=== PATIENT | female | born 1985 | race Caucasian/White ===

== ENCOUNTER 2016-09-14 10:07 | Emergency (ER) | payer MEDICAID, OTHER ==
[2016-09-14 10:26] VITALS: BMI 29.3
[2016-09-14 13:13] LABS: AUTOMATED BASOPHIL 0.3 % (0-2); AUTOMATED EOSINOPHIL 0.5 % (0-5); AUTOMATED LYMPH 32.5 % (17-44); AUTOMATED MONOCYTE 8.1 % (3-10); AUTOMATED NEUTROPHIL 58.6 % (45-76)
[2016-09-14 13:25] LABS: BLOOD UREA NITROGEN 11 MG/DL (7-17); CALCIUM 9.9 MG/DL (8.4-10.2); CALCULATED OSMOLALITY 267 MOs/Kg (270-290); CHLORIDE 103 mEq/L (98-107); GLUCOSE 90 MG/DL (70-99); SODIUM LEVEL 139 mEq/L (137-146); TOTAL PROTEIN 7.4 G/DL (6.3-8.2)
--- NOTE | 2016-09-14 13:53 | EDPRACDOC ---
- General Information Information Source: Patient - History of Present Illness Onset: THIS AM Description: Reports: Spontaneous Control Method: Reports: None Pain Severity: Mild Vaginal Bleeding Description: Reports: Clotted Associated Signs & Symptoms: Reports: None <Keaton Carrillo - Last Filed: 09/14/16 14:01> - History of Present Illness Location: Reports: External Vagina Relevant History: Reports: Currently <Viktor Loving - Last Filed: 09/14/16 16:04> - General Information Chief Complaint: Vaginal Bleeding Stated Complaint: VAGINAL BLEEDING () Time Seen by Provider: 09/14/16 12:26 Home Medications: Home Medications Vits W-Ca,Fe,FA(<1Mg) [] 1 tab PO DAILY 08/25/15 Allergies/Adverse Reactions: Allergies Allergy/AdvReac Type Severity Reaction Status Date / Time No Known Allergies Allergy Verified 09/18/15 23:59 ED Past Medical History - History Reviewed Yes Nurses notes reviewed and agree except as marked - Patient Medical History Neurological History: Denies: Cerebrovascular Accident, Seizures, Multiple Sclerosis Cardiac History: Denies: Syncope Psychological History: Denies: Depression, Anxiety, Bipolar Disorder, Substance Use Disorder Systemic History: Denies: Cancer, Anemia, Hyperthyroidism, Hypothyroidism, Lupus Surgical History: Denies: Tonsillectomy/Adnoidectomy - Family Medical History Denies: Hypertension, Diabetes, Cancer, Stroke, Cardiac Disorders - Social Medical History Smoking Status: Never smoker Social History: Denies: Amphetamine Use, Barbiturate Use, Benzodiazipine Use, Cocaine Use, Heroin Use, Marijuana Use, Methadone Use, MDMA (Ecstasy) Use, Substance Use Disorder <Keaton Carrillo - Last Filed: 09/14/16 14:01> EDM Review of Systems - Review of Systems ROS Negative Except as Marked: Yes All systems reviewed and were negative except as marked <Keaton Carrillo - Last Filed: 09/14/16 14:01> - Physical Exam Constitutional: Alert (Awake), No apparent distress Oriented to: Time, Person, Place Last recorded Vital Signs: Last Vital Signs Temp 98.5 F 09/14/16 10:24 Pulse 89 09/14/16 10:26 Resp 16 09/14/16 10:26 BP 126/76 09/14/16 10:26 Pulse Ox 97 09/14/16 10:26 Oxygen Pulse Oxygen Saturation 97 O2 Device Room Air Oxygen Flow Rate Fraction of Inspired Oxygen ( FIO2) - HEENT Head: Normal ( normocephalic) Eye Exam: Normal (PERRL, EOMI, Sclera white) Oropharynx: Normal (Pharynx:Moist without exudate,Gums-no swelling) Tympanic Membrane: Normal ENT EAC: Normal TMJ: Normal Nose: No Symptoms Reported (septum midline) Neck: Normal (FROM, trachea at midline) - Respiratory/Cardiovascular Respiratory: Normal - CTA (BBS clear to auscultation without adventitious sounds ) Cardiovascular: Normal (RRR without murmur, gallop or rub) - GI Auscultation: Normal (NABS) Palpation: Normal (Soft,No rebound or guarding, non distended) Tenderness: Non tender Domínguez's Sign: Negative - Musculoskeletal Back: Normal (Non-Tender) Extremities: Normal (Normal tone, Pulses 2+ No cyanosis or edema, FROM) - Integumentary Skin: Normal, Warm, Dry Lymphatics: Normal (no adenopathy) - Neurologic Memory Impaired: Normal Motor Function: Normal (Normal tone, Pulses 2+ No cyanosis or edema, FROM) Cranial Nerve: Normal (CN II-X11 intact sensation, strength 5/5) Cerebellar: Normal Mood Description: Normal Perception: Normal <Keaton Carrillo - Last Filed: 09/14/16 14:01> - Physical Exam Last recorded Vital Signs: Last Vital Signs Temp 98.5 F 09/14/16 10:24 Pulse 89 09/14/16 10:26 Resp 16 09/14/16 10:26 BP 126/76 09/14/16 10:26 Pulse Ox 97 09/14/16 10:26 Oxygen Pulse Oxygen Saturation 97 O2 Device Room Air Oxygen Flow Rate Fraction of Inspired Oxygen ( FIO2) <Viktor Loving - Last Filed: 09/14/16 16:04> ED Vaginal Exam External: Normal Vaginal Exam: Normal Vaginal Lesions: None Vaginal Discharge: None Cervix: Other Uterus: Normal size Adnexa: Normal <Keaton Carrillo - Last Filed: 09/14/16 14:01> - Results 09/14/16 13:00 09/14/16 13:00 WBC 7.0 xk/uL (3.8-10.8) 09/14/16 13:00 RBC 4.54 xM/uL (4.20-5.40) 09/14/16 13:00 Hgb 13.2 g/dL (12.0-16.0) 09/14/16 13:00 Hct 39.3 % (36-47) 09/14/16 13:00 MCV 87 fL (81-99) 09/14/16 13:00 MCH 29.1 pg (27-32) 09/14/16 13:00 MCHC 33.6 g/dl (33-36) 09/14/16 13:00 RDW 13.0 % (11.5-14.5) 09/14/16 13:00 Plt Count 322 xk/uL (130-400) 09/14/16 13:00 MPV 7.0 fL (7.4-10.4) L 09/14/16 13:00 Neut % (Auto) 58.6 % (45-76) 09/14/16 13:00 Lymph % (Auto) 32.5 % (17-44) 09/14/16 13:00 Meigs % (Auto) 8.1 % (3-10) 09/14/16 13:00 Eos % (Auto) 0.5 % (0-5) 09/14/16 13:00 Baso % (Auto) 0.3 % (0-2) 09/14/16 13:00 Absolute Neuts (auto) 4.06 xk/uL (1.7-8.2) 09/14/16 13:00 Absolute Lymphs (auto) 2.24 xk/uL (0.65-4.75) 09/14/16 13:00 Sodium 139 mEq/L (137-146) 09/14/16 13:00 Potassium 4.3 mEq/L (3.5-5.1) 09/14/16 13:00 Chloride 103 mEq/L (98-107) 09/14/16 13:00 Carbon Dioxide 24 mMOL/L (22-33) 09/14/16 13:00 Anion Gap 16 mEq/L (8-16) 09/14/16 13:00 BUN 11 MG/DL (7-17) 09/14/16 13:00 Creatinine 0.70 MG/DL (0.52-1.04) 09/14/16 13:00 Estimated GFR (MDRD) > 60 mL/min (>=60) 09/14/16 13:00 Glucose 90 MG/DL (70-99) 09/14/16 13:00 Calculated Osmolality 267 MOs/Kg (270-290) L 09/14/16 13:00 Calcium 9.9 MG/DL (8.4-10.2) 09/14/16 13:00 Total Bilirubin 1.0 MG/DL (0.2-1.3) 09/14/16 13:00 AST 17 IU/L (14-36) 09/14/16 13:00 ALT 36 IU/L (9-52) 09/14/16 13:00 Alkaline Phosphatase 69 IU/L (38-126) 09/14/16 13:00 Total Protein 7.4 G/DL (6.3-8.2) 09/14/16 13:00 Albumin 4.3 G/DL (3.5-5.0) 09/14/16 13:00 Beta HCG, Quant 81805.0 mIU/mL (<5) 09/14/16 13:00 Blood Type Cancelled 09/14/16 12:27 Lab Results 09/14/16 09/14/16 09/14/16 13:00 13:00 12:27 WBC 7.0 RBC 4.54 Hgb 13.2 Hct 39.3 MCV 87 MCH 29.1 MCHC 33.6 RDW 13.0 Plt Count 322 MPV 7.0 L Neut % (Auto) 58.6 Lymph % (Auto) 32.5 Meigs % (Auto) 8.1 Eos % (Auto) 0.5 Baso % (Auto) 0.3 Absolute Neuts (auto) 4.06 Absolute Lymphs (auto) 2.24 Sodium 139 Potassium 4.3 Chloride 103 Carbon Dioxide 24 Anion Gap 16 BUN 11 Creatinine 0.70 Estimated GFR (MDRD) > 60 Glucose 90 Calculated Osmolality 267 L Calcium 9.9 Total Bilirubin 1.0 AST 17 ALT 36 Alkaline Phosphatase 69 Total Protein 7.4 Albumin 4.3 Beta HCG, Quant 89006.0 Blood Type Cancelled - Additional Information ENDORSED TO ERIKA; PT IS O POSITIVE <Keaton Carrillo - Last Filed: 09/14/16 14:01> - Results 09/14/16 13:00 09/14/16 13:00 WBC 7.0 xk/uL (3.8-10.8) 09/14/16 13:00 RBC 4.54 xM/uL (4.20-5.40) 09/14/16 13:00 Hgb 13.2 g/dL (12.0-16.0) 09/14/16 13:00 Hct 39.3 % (36-47) 09/14/16 13:00 MCV 87 fL (81-99) 09/14/16 13:00 MCH 29.1 pg (27-32) 09/14/16 13:00 MCHC 33.6 g/dl (33-36) 09/14/16 13:00 RDW 13.0 % (11.5-14.5) 09/14/16 13:00 Plt Count 322 xk/uL (130-400) 09/14/16 13:00 MPV 7.0 fL (7.4-10.4) L 09/14/16 13:00 Neut % (Auto) 58.6 % (45-76) 09/14/16 13:00 Lymph % (Auto) 32.5 % (17-44) 09/14/16 13:00 Meigs % (Auto) 8.1 % (3-10) 09/14/16 13:00 Eos % (Auto) 0.5 % (0-5) 09/14/16 13:00 Baso % (Auto) 0.3 % (0-2) 09/14/16 13:00 Absolute Neuts (auto) 4.06 xk/uL (1.7-8.2) 09/14/16 13:00 Absolute Lymphs (auto) 2.24 xk/uL (0.65-4.75) 09/14/16 13:00 Sodium 139 mEq/L (137-146) 09/14/16 13:00 Potassium 4.3 mEq/L (3.5-5.1) 09/14/16 13:00 Chloride 103 mEq/L (98-107) 09/14/16 13:00 Carbon Dioxide 24 mMOL/L (22-33) 09/14/16 13:00 Anion Gap 16 mEq/L (8-16) 09/14/16 13:00 BUN 11 MG/DL (7-17) 09/14/16 13:00 Creatinine 0.70 MG/DL (0.52-1.04) 09/14/16 13:00 Estimated GFR (MDRD) > 60 mL/min (>=60) 09/14/16 13:00 Glucose 90 MG/DL (70-99) 09/14/16 13:00 Calculated Osmolality 267 MOs/Kg (270-290) L 09/14/16 13:00 Calcium 9.9 MG/DL (8.4-10.2) 09/14/16 13:00 Total Bilirubin 1.0 MG/DL (0.2-1.3) 09/14/16 13:00 AST 17 IU/L (14-36) 09/14/16 13:00 ALT 36 IU/L (9-52) 09/14/16 13:00 Alkaline Phosphatase 69 IU/L (38-126) 09/14/16 13:00 Total Protein 7.4 G/DL (6.3-8.2) 09/14/16 13:00 Albumin 4.3 G/DL (3.5-5.0) 09/14/16 13:00 Beta HCG, Quant 90779.0 mIU/mL (<5) 09/14/16 13:00 Urine Color Yellow 09/14/16 12:11 Urine Clarity Clear 09/14/16 12:11 Urine pH 6.0 (5.0-8.0) 09/14/16 12:11 Ur Specific [place] 1.015 (1.003-1.035) 09/14/16 12:11 Urine Protein Neg (NEG/TRACE) 09/14/16 12:11 Urine Glucose (UA) Neg (NEGATIVE) 09/14/16 12:11 Urine Ketones Neg (NEGATIVE) 09/14/16 12:11 Urine Occult Blood Neg (NEG/TRACE) 09/14/16 12:11 Urine Nitrite Neg (NEGATIVE) 09/14/16 12:11 Urine Bilirubin Neg (NEGATIVE) 09/14/16 12:11 Urine Urobilinogen <2.0 MG/DL (0-1) 09/14/16 12:11 Ur Leukocyte Esterase Neg (NEGATIVE) 09/14/16 12:11 Urine RBC 0-2 (0-5) 09/14/16 12:11 Urine WBC 0-2 (0-5) 09/14/16 12:11 Ur Epithelial Cells Occ 09/14/16 12:11 Urine Mucus Sm amt (NEG/OCC) 09/14/16 12:11 Blood Type Cancelled 09/14/16 12:27 Lab Results 09/14/16 09/14/16 09/14/16 13:00 13:00 12:27 WBC 7.0 RBC 4.54 Hgb 13.2 Hct 39.3 MCV 87 MCH 29.1 MCHC 33.6 RDW 13.0 Plt Count 322 MPV 7.0 L Neut % (Auto) 58.6 Lymph % (Auto) 32.5 Meigs % (Auto) 8.1 Eos % (Auto) 0.5 Baso % (Auto) 0.3 Absolute Neuts (auto) 4.06 Absolute Lymphs (auto) 2.24 Sodium 139 Potassium 4.3 Chloride 103 Carbon Dioxide 24 Anion Gap 16 BUN 11 Creatinine 0.70 Estimated GFR (MDRD) > 60 Glucose 90 Calculated Osmolality 267 L Calcium 9.9 Total Bilirubin 1.0 AST 17 ALT 36 Alkaline Phosphatase 69 Total Protein 7.4 Albumin 4.3 Beta HCG, Quant 51711.0 Urine Color Urine Clarity Urine pH Ur Specific [place] Urine Protein Urine Glucose (UA) Urine Ketones Urine Occult Blood Urine Nitrite Urine Bilirubin Urine Urobilinogen Ur Leukocyte Esterase Urine RBC Urine WBC Ur Epithelial Cells Urine Mucus Blood Type Cancelled 09/14/16 12:11 WBC RBC Hgb Hct MCV MCH MCHC RDW Plt Count MPV Neut % (Auto) Lymph % (Auto) Meigs % (Auto) Eos % (Auto) Baso % (Auto) Absolute Neuts (auto) Absolute Lymphs (auto) Sodium Potassium Chloride Carbon Dioxide Anion Gap BUN Creatinine Estimated GFR (MDRD) Glucose Calculated Osmolality Calcium Total Bilirubin AST ALT Alkaline Phosphatase Total Protein Albumin Beta HCG, Quant Urine Color Yellow Urine Clarity Clear Urine pH 6.0 Ur Specific [place] 1.015 Urine Protein Neg Urine Glucose (UA) Neg Urine Ketones Neg Urine Occult Blood Neg Urine Nitrite Neg Urine Bilirubin Neg Urine Urobilinogen <2.0 Ur Leukocyte Esterase Neg Urine RBC 0-2 Urine WBC 0-2 Ur Epithelial Cells Occ Urine Mucus Sm amt Blood Type <Viktor Loving - Last Filed: 09/14/16 16:04> - Departure Yes I personally saw and evaluated the patient. Disposition: Home Education/Counseling Given To: Patient Education/Counseling Given Regarding: Diagnosis, Treatment, Prognosis <eKaton Carrillo - Last Filed: 09/14/16 14:01> Decision Time to Discharge: 16:03 <Viktor Loving - Last Filed: 09/14/16 16:04> - Departure Condition: Good Final Diagnosis: THREATENED AB Instructions: Threatened Miscarriage (ED) Referrals: Aki Pina MD [Primary Care Provider] - One Week Roel Alvarez MD [Staff Physician] - One Week Prescriptions: No Action Vits W-Ca,Fe,FA(<1Mg) [] 1 tab PO DAILY Additional Instructions: RETURN IN 2 DAYS FOR REPEAT QUANTITATIVE HCG
[2016-09-14 15:20] LABS: LEUKOCYTES/URINE NEG (NEGATIVE); NITRITE/URINE NEG (NEGATIVE); RBC/URINE 0-2 (0-5); URINE OCCULT BLOOD NEG (NEG/TRACE); WBC/URINE 0-2 (0-5)
--- NOTE | 2016-09-14 15:25 | DIRPT ---
CLINICAL DATA: Vaginal bleeding for 1 day. Unsure of LMP. EXAM: OBSTETRIC <14 WK US AND TRANSVAGINAL OB US TECHNIQUE: Both transabdominal and transvaginal ultrasound examinations were performed for complete evaluation of the gestation as well as the maternal uterus, adnexal regions, and pelvic cul-de-sac. Transvaginal technique was performed to assess early . COMPARISON: None. FINDINGS: Intrauterine gestational sac: Single intrauterine gestational sac seen with somewhat irregular shape and location in lower uterine segment Yolk sac: Visualized Embryo: Not visualized MSD: 21 mm 7 w 0 d Subchorionic hemorrhage: Small subchorionic hemorrhage visualized. Maternal uterus/adnexae: Both ovaries are normal in appearance. No mass or free fluid identified. IMPRESSION: Single irregular intrauterine gestational sac located in the lower uterine segment measuring 7 weeks 0 days. Findings are suspicious but not yet definitive for failed intrauterine . Recommend follow-up US in 10 days for definitive diagnosis. This recommendation follows SRU consensus guidelines: Diagnostic Criteria for Nonviable Early in the First Trimester. N Engl J Med 2013; 369:1443-51. Electronically Signed By: Carlton Javed M.D. On: 09/14/2016 15:22
[2016-09-14 16:13] VITALS: BP 133/69; PULSE 71
[2016-09-14 16:16] VITALS: TEMP 98.6
[2016-09-15] MEDS ORDERED: NITROGLYCERINE 0.4 MG TAB SL ONE (02:16)
== END 2016-09-14 16:20 | disposition home or self-care (01) ==
LOC: ED 10:07
DX: O20.0 Threatened abortion (principal); Z3A.00 Weeks of gestation of pregnancy not specified
CPT/HCPCS: 36415; 76801; 76817; 80053; 81001; 84702; 85025; 99283; J3490